=== PATIENT | female | born 1950 | race Caucasian/White ===

== ENCOUNTER 2020-03-22 10:13 | Inpatient (IN) | payer MEDICARE ==
[~2020-03-22] VITALS: Ht 160 cm; Wt 84.9 kg
[~2020-03-22 10:13] MED LIST: ASPIRIN325 M1 OR; FOSINOPRIL10 MG OR; GLIPIZIDE10 MG OR; LISINOPRIL10 MG OR; METFORMIN1000 MG OR; METOPROLOL25 M1 OR; RELION 70/30 SC
--- NOTE | 2020-03-22 10:13 | NUR ---
PT TO ROOM VIA EMS FOR BEDSIDE TRIAGE
[2020-03-22] MEDS ORDERED: LASIX 40 MG TAB40 MG PO (10:29)
[2020-03-22] MEDS ORDERED: SOD CHLORIDE1 G2 PO (10:30)
[2020-03-22] MEDS ORDERED: BUMEX1 M1 PO (10:32)
[2020-03-22] MEDS ORDERED: SPIRONOLACT25 MG PO (10:32)
[2020-03-22] MEDS ORDERED: LIPITOR20 M1 PO (10:33)
[2020-03-22] MEDS ORDERED: LEVOTHYROXIN75 MC1 PO (10:34)
[2020-03-22] MEDS ORDERED: PLAVIX75 MG PO (10:35)
[2020-03-22] MEDS ORDERED: IRON (FERROUS S50 MG PO (10:36)
[2020-03-22 10:40] LABS: HEMATOCRIT 44.7 % (37.0-47.0); HEMOGLOBIN 14.7 g/dl (12.0-16.0); IMMATURE GRANULOCYTES 0.8 % (0.0-5.0); MEAN CELL VOLUME 87.5 fL CALC (80.0-100.0); MEAN CORPUSCULAR HGB 28.8 pG CALC (26.0-32.0); MEAN CORPUSCULAR HGB CONC 32.9 g/dL CAL (32.0-36.0); NEUT# 8.07 thou/uL (2.00-7.15); RED BLOOD COUNT 5.11 mill/uL (4.20-5.60); RED CELL DISTRI WIDTH 14.6 % (11.5-15.5)
[2020-03-22 11:04] LABS: ALBUMIN 4.3 g/dL (3.2-5.0); BUN 23 mg/dL (8-23); BUN/CREATININE RATIO 27 (12-20 (CALC)); CARBON DIOXIDE 29 mmol/l (22-30); CREATININE 0.9 mg/dL (0.5-1.0); GFR > 60 ML/MIN (>=60 (CALC)); GFR FOR AFR.AMER. > 60 ML/MIN (>=60 (CALC)); MAGNESIUM 1.5 mg/dL (1.6-2.3); POTASSIUM 4.5 mmol/l (3.5-5.1); SGOT/AST 36 u/l (9-36)
[2020-03-22 11:05] LABS: ALKALINE PHOSPHATASE 181 u/l (38-126); ANION GAP 17 (6-22 (CALC)); BILIRUBIN, TOTAL 1.8 mg/dL (0.0-1.4); CHLORIDE 82 mmol/l (95-108); SODIUM 123 mmol/l (137-146); TOTAL PROTEIN 8.7 g/dL (6.3-8.2)
--- NOTE | 2020-03-22 11:11 | NUR ---
PT TO RADIOLOGY IN STABLE CONDITION AT THIS TIME
[2020-03-22 11:12] LABS: D-DIMER 7.57 mg/L (0.19-0.60); INTERNATIONAL NORMALIZED RATIO 1.3 RATIO (0.7-1.3)
--- NOTE | 2020-03-22 12:10 | NUR ---
PT RESTING ON STRETCHER; NO S/S OF DISTRESS NOTED; VENTIMASK IN PLACE; FAMILY AT BEDSIDE; VSS; ADVISED OF CONTINUED WAIT TIME; PUREWICK PLACED FOR PT COMFORT; PT VOIDED 1000ML OF CLEAR YELLOW URINE; ADVISED OF CONTINUED WAIT TIME
[2020-03-22 12:47] LABS: AMYLASE 96 u/l (30-110); LIPASE 86 u/l (23-300)
[2020-03-22 12:48] LABS: ETHYL ALCOHOL 0 mg/dl (0-30)
[2020-03-22 13:10] LABS: URINE BILIRUBIN - DIPSTICK NEGATIVE (NEGATIVE); URINE BLOOD DIPSTICK TRACE-LYSED (NEGATIVE); URINE COLOR YELLOW; URINE GLUCOSE - DIPSTICK 100 mg/dL (NEGATIVE); URINE KETONE NEGATIVE (NEGATIVE); URINE LEUK ESTERASE NEGATIVE (NEGATIVE); URINE NITRITE - DIPSTICK NEGATIVE (Negative); URINE PH 7.5 (4.5-8.0); URINE PROTEIN - DIPSTICK TRACE mg/dL (NEG-TRACE); URINE UROBILINOGEN - DIPSTICK 0.2 E.U./dL (0.2)
--- NOTE | 2020-03-22 13:10 | NUR ---
PT RESTING ON STRETCHER; IV ANTIBIOTICS INFUSING; ACCUCHECK READING 66 AT THIS TIME; PO FLUIDS GIVEN WILL CONTINUE TO MONITOR
[2020-03-22 13:14] LABS: BARBITURATES NEGATIVE (NEGATIVE); COCAINE NEGATIVE (NEGATIVE); METHADONE NEGATIVE (NEGATIVE); OXCYCODONE NEGATIVE (NEGATIVE); TETRAHYDROCANNABIONOL NEGATIVE (NEGATIVE); TRICYLIC ANTIDEPRESSANTS NEGATIVE (NEGATIVE)
--- NOTE | 2020-03-22 14:10 | NUR ---
PT RESTING ON STRETCHER; NO S/S OF DISTRESS NOTED; MONIOTRING DEVICES IN PLACE; VSS; ADVISED OF CONTINUED WAIT TIME FOR ADMISSION; ACCUCHECK RECHECK 166; WILL CONTINUE TO MONITOR
--- NOTE | 2020-03-22 15:10 | NUR ---
Admission Note Report Given to: NITO MANNING Transported by: Wheelchair X Stretcher Transported with: X Nurse Transporter X Patent IV X O2 X Art Instructor Location: ICU X MS2
--- NOTE | 2020-03-22 15:10 | NUR ---
PT ARRIVED TO UNIT VIA STRETCHER WITH ER STAFF; ALERT AND ORIENTED. ASSISTED FROM STRETCHER TO BED WITH 3 PERSON ASSIST. PT C/O PAIN TO LEFT HIP WITH MOVEMENT, BUT DECLINES PAIN AT REST. RESPIRATIONS SHALLOW AND SLIGHTLY LABORED WITH EXERTION; ON 9L OF OXYGEN VIA VENTIMASK. LEVAQUIN INFUSING UP ON ARRIVAL; IV SITE TO [facility] APPEARS HEALTHY. PURWIK IN PLACE. PT ORIENTED TO ROOM AND CALL LIGHT SYSTEM. PLAN OF CARE DISCUSSED. ENCOURAGED TO VERBALIZE CONCERNS; STATES UNDERSTANDING. SAFETY MEASURES IN PLACE. CALL LIGHT WITHIN REACH.
[2020-03-22 15:31] VITALS: BP 94/60
--- NOTE | 2020-03-22 15:37 | NUR ---
PT REMOVED FACE MASK; 4L OF OXYGEN APPLIED VIA NC; SPO2 100%. LUNGS ARE DIMINISHED; HR REGULAR; PERRLA; RAISED AREA TO RIGHT UPPER CHEST WITH BLACK CIRCULAR CENTER PROTRUDING; ABDOMEN DISTENDED AND SOFT; REDNESS TO RIGHT GROIN; EXCORIATION TO LEFT ABDOMINAL FOLD; PHOTOS TAKEN AND PLACED IN CHART. WEAK PEDAL PULSES; FEET COOL WITH PURPLE DISCOLORATION. PT SITTING UP DRINKING WATER.
[2020-03-22 20:11] VITALS: BP 135/87
--- NOTE | 2020-03-22 21:03 | NUR ---
PT. RESTING IN BED WITH EXERTIONAL SOB NOTED. O2 INFUSING PER NC @4LITERS/MIN. DENIES NEEDS/PAIN. PT. WITH PUREWIC IN PLACE AFTER TRANSCRIBING MACHINE MECHANIC ATTMEPTED TO GET PT. OOB FOR APPROXIMATELY 40 MINUTES AND WAS UNSUCCESSFUL WITH THIS. REDNESS NOTED TO LEFT ABDOMINAL FOLD AND ALOE CREAM APPLIED. PT. IS ENCOURAGED TO REPOSITION OFTEN. VOICES NO CONCERNS. CALL LIGHT IS IN REACH. WILL CONTINUE TO MONITOR.
[2020-03-23] VITALS (23 sets, daily range): BP systolic 71–125; BP diastolic 44–71
--- NOTE | 2020-03-23 00:10 | NUR ---
STARTED IV TO RFA X1 ATTEMPT AND EMS SITE REMOVED FROM LAC WITH CATHETER TIP INTACT. PT. TOLERATED WELL; DENIES NEEDS.
--- NOTE | 2020-03-23 03:30 | NUR ---
INCENTIVE SPIROMETER PROVIDED AND EDUCATION GIVEN; PT. ABLE TO PULL 500 AND GOAL SET TO 750. O2 TITRATED DOWN TO 2LITERS/MIN PER NC AND SPO2 97%. ENCOURAGED TO DEEP BREATHE. FRESH WATER PROVIDED.
[2020-03-23 05:00] LABS: HEMATOCRIT 43.9 % (37.0-47.0); HEMOGLOBIN 14.2 g/dl (12.0-16.0); IMMATURE GRANULOCYTES 0.5 % (0.0-5.0); MEAN CELL VOLUME 88.2 fL CALC (80.0-100.0); MEAN CORPUSCULAR HGB 28.5 pG CALC (26.0-32.0); MEAN CORPUSCULAR HGB CONC 32.3 g/dL CAL (32.0-36.0); NEUT# 11.9 thou/uL (2.00-7.15); RED BLOOD COUNT 4.98 mill/uL (4.20-5.60); RED CELL DISTRI WIDTH 14.9 % (11.5-15.5)
[2020-03-23 05:11] LABS: ALBUMIN 3.8 g/dL (3.2-5.0); ALKALINE PHOSPHATASE 124 u/l (38-126); ANION GAP 15 (6-22 (CALC)); BUN 25 mg/dL (8-23); BUN/CREATININE RATIO 26 (12-20 (CALC)); CARBON DIOXIDE 30 mmol/l (22-30); CHLORIDE 83 mmol/l (95-108); CREATININE 0.9 mg/dL (0.5-1.0); GFR > 60 ML/MIN (>=60 (CALC)); GFR FOR AFR.AMER. > 60 ML/MIN (>=60 (CALC)); POTASSIUM 5.1 mmol/l (3.5-5.1); SGOT/AST 27 u/l (9-36); SODIUM 123 mmol/l (137-146); TOTAL PROTEIN 7.6 g/dL (6.3-8.2)
--- NOTE | 2020-03-23 05:56 | NUR ---
PT. ASSISTED TO TURN ONTO RIGHT SIDE PER HER REQUEST. PT. IS ENCOURAGED TO MOVE. PO FLUIDS OFFERED.
--- NOTE | 2020-03-23 07:15 | NUR ---
REPORT RECEIVED FROM NITO BARRY. PT RESTING ON LEFT SIDE; POSITIONED WITH PILLOWS. ALERT AND ORIENTED. C/O 9/10 PAIN WITH MOVEMENT; DECLINES PAIN AT REST. RESPIRATIONS EVEN AND UNLABORED ON OXYGEN 2L VIA NC. TELE ON. ACCU CHECK 133. PLAN OF CARE REVIEWED. PT ENCOURAGED TO VERBALIZE CONCERNS. STATES UNDERSTANDING. SAFETY MEASURES IN PLACE. CALL LIGHT WITHIN REACH.
--- NOTE | 2020-03-23 08:03 | NUR ---
PT REPOSITIONED ONTO BACK AND PULLED UP IN BED; ENCOURAGED TO MOVE HERSELF; MINIMAL EFFORT; PT REPORTS THAT IT IS DUE TO PAIN ON MOVEMENT OF 9/10 TO LEFT HIP. AFTER REPOSITIONING PT C/O SEVERE DIZZINESS WITH DRY HEAVES. COOL CLOTH APPLIED TO HEAD AND DEEP BREATHING ENCOURAGED WITH GOOD EFFECT. PT SITTING UP EATING BREAKFAST.
--- NOTE | 2020-03-23 10:59 | NUR ---
PT RESTING WITH EYES CLOSED; RESTING ON RIGHT SIDE WITH PILLOWS TO OFFLOAD BACK. ENCOURGED TO REPOSITION SELF IN BED.
--- NOTE | 2020-03-23 12:17 | NUR ---
DR. VASQUEZ AT BEDSIDE.
--- NOTE | 2020-03-23 12:26 | NUR ---
TYLENOL GIVEN FOR DISCOMFORT WITH MOVEMENT.
--- NOTE | 2020-03-23 13:59 | NUR ---
BLOOD PRESSURE DOWN TO 86/58 HR IN THE 90'S. REPOSITIONED PT SUPINE AND F/U BP 76/57. PT DIAPHORETIC. ALERT AND ORIENTED TO NAME AND PLACE; UNABLE TO REMEMBER THE YEAR SHE HAD BEFORE. ACCU CHECK 281. SR ON TELEMETRY HEART RATE IN THE S. DR. VASQUEZ NOTIFIED OF CHANGE IN CONDITION. NEW ORDER FOR FLUID BOLUS. RT AT BEDSIDE FOR ABG.
--- NOTE | 2020-03-23 14:08 | NUR ---
FACIAL FLUSHING; DENIES PAIN; URINE IS DARKER CLEAR KELLEE. BLOOD PRESSURE IMPROVED NOW 106/[address] VASQUEZ UPDATED. NEW ORDER TO DISCONTINUE BOLUS; PT HAS RECEIVED 225ML IV TOTAL. GIVEN ONE TIME DOSE OF ALBUMIN. ABG RESULTS SHOW PO2 OF 55; RT AT BEDSIDE; OXYGEN INCREASED TO 4L VIA NC.
--- NOTE | 2020-03-23 15:07 | NUR ---
NEW IV STARTED TO LFA AND ALBUMIN INFUSING AT THIS TIME. RESPIRATORY STATUS UNCHANGED; LUNG SOUNDS ARE DIMINISHED WITH WHEEZING TO LEFT. WILL CLOSELY MONITOR BLOOD PRESSURE AND RESPIRATORY STATUS. PT AWAKE AND TALKING TO ON TELEPHONE.
--- NOTE | 2020-03-23 16:21 | NUR ---
BLOOD PRESSURE HAS REMAINS STABLE; CURRENTLY 90/60 HR 89. PT RESTING WITH EYES CLOSED AND NO SIGNS OF DISTRESS; SPO2 100% ON HUMIDIFIED O2 4L. PT REQUESTED THAT NURSE ADJUST HER POSITION IN BED; PT ENCOURAGED TO REPOSITION HERSELF INDEPENDENTLY. PT ADMITS THAT SHE DOES HAVE DIFFICULTY AMBULATING AT HOME AND HER ASSISTS HER. PT ORDERED FOR ACTIVITY LEVEL EVAL. SAFETY MEASURES IN PLACE. CALL LIGHT WITHIN REACH.
--- NOTE | 2020-03-23 18:31 | NUR ---
PT REMAINS HYPOTENSIVE. BP CURRENTLY 83/58. NEW ORDER TO TRANSFER TO ICU FOR CLOSER MONITORING; KEEP MAP GREATER THAN 60. ROOM ASSIGNMENT RECEIVED; ICU BED 5 FROM NITO SAGASTUME.
--- NOTE | 2020-03-23 19:35 | NUR ---
PT ARRIVES VIA BED ACCOMPANIED BY NURSE'S AIDE OMEGA AND NITO MANNING, ON 4 L/MIN NC. NO ACUTE DISTRESS SHOWN. PT IS ALERT AND ORIENTED X4. NURSING ASSESSMENTPERFORMED. POC FOR TONIGHT DISCUSSED, PT UNDERSTANDS AND AGREES. PT DENIES PAIN. PT SATS 96%-98% ON 4 L/MIN NC. AFEBRILE. IV X2 INTACT AND FLUSH PROPERLY, SALINE LOCKED AT THIS TIME. PUREWICK INTACT AND AT HIGH CONTINUOUS SUCTION. PT HAS TEAM ASSEMBLER COUGH. PT REMINDED SHE IS ON AIRBORNE PRECAUTIONS FOR TESTING FOR CORONAVIRUS. PT'S BP SYSTOLIC 70'S. WILL CALL FOR ORDERS.
--- NOTE | 2020-03-23 19:38 | NUR ---
REPORT GIVEN TO NITO RODRIGUEZ. PT TRANSFERRED TO ICU ROOM 6 VIA BED WITH OXYGEN IN STABLE CONDITION.
--- NOTE | 2020-03-23 20:04 | NUR ---
CALLED AND SPOKE TO DR VASQUEZ TO NOTIFY PT'S LAST BP 72/52, MAP OF 58. NEW ORDERS RECEIVED BY DR VASQUEZ.
--- NOTE | 2020-03-23 20:10 | NUR ---
PATIENT WAS LAYING WITH HOB ABOUT 15 DEGREES, NOTICED O2 SAT WAS 88%. ASKED PT IF SHE WAS ABLE TO PULL HERSELF UP, PT ATTEMPTED TO WITH VERBAL CUEING AND POSITIONING, PT IS WEAK, RN JOHNNY AND I PULLED HER UP, RAISED HOB ABOUT 45 DEGREES, PT NOW SATS 93%-95%. SOB NOTED WITH EXERTION. NO LABORED BREATHING. PT FEELS NAUSEAUS, EMESIS BAG PROVIDED, WILL PROVIDED ZOFRAN.
--- NOTE | 2020-03-23 21:11 | NUR ---
PT WAS GIVEN ZOFRAN FOR NAUSEA, WHICH SHE REPORTED IT HELPED. LEVOPHED DRIP WAS STARTED WITH NS AT [facility] FOR BACKUP FLUIDS. 1 UNIT OF NOVOLOG GIVEN FOR BS 191 MG/DL. PT SATS 96%, NO RESPIRATORY DISTRESS NOTED, BP NOW IS 126/72 MMHG, LEVOPHED DRIP IS AT 8 MCG/MIN OR 30 ML/HR. SR ON TELEMETRY, HR RANGES 70'S-80'S. NOW SHE IS TALKING ON THE PHONE WITH HER , WAS UPDATED ON CURRENT STATUS. CALL LIGHT WITHIN REACH.
--- NOTE | 2020-03-23 21:45 | NUR ---
PT ASSISTED X2 TO TURN ON HER RIGHT SIDE, PT WAS ENCOURAGED TO HELP. NO ACUTE DISTRESS SHOWN. CALL LIGHT WITHIN REACH.
--- NOTE | 2020-03-23 21:59 | NUR ---
PATIENT ABLE TO SWALLOW HER SODIUM CHLORIFE TABLET. NO ACUTE DISTRES SHOWN. NO NEEDS AT THIS TIME. CALL LIGHT WITHIN REACH.
[2020-03-24] VITALS (26 sets, daily range): BP systolic 95–12112; BP diastolic 7–76
--- NOTE | 2020-03-24 00:49 | NUR ---
LEVOPHED DRIP TITRATED, PT'S BP 130'S SYSTOLIC. NC 4L/MIN WEANED TO 3 L/MIN, PT'S 02 SAT 98%-100%. PT RESTS WITH EYES CLOSED. NO ACUTE DISTRESS NOTED. CALL LIGHT WITHIN REACH.
--- NOTE | 2020-03-24 02:00 | NUR ---
BEDRESTING. CEDEÑO TO BSD- HAS MODERATE AMOUNT OF STRAW URINE. IV OF LEFT FOREARM REMAINS HL. TLCL IN PLACE WITH INFUSIONS RX
--- NOTE | 2020-03-24 04:00 | NUR ---
SNOORING. O2 AT 4L/MIN VIA N/C REMAINS IN USE. (USES C.PAP AT HOME). SATS NOT HIGH WHILE AWAKE BUT REMAIN GREATER THAN 90% SBP LESS THAN 100 BUT MEAN WNL. PT SNOORING. SBP >100 WHEN ARROUSED. WILL CONTINUE LEVOPHED SAME RATE-NO TITRATION AT THIS TIME
--- NOTE | 2020-03-24 04:59 | NUR ---
PATIENT PULLED UP IN BED ASSIST X2, LAYS ON HER RIGHT SIDE. BECAME NAUSEAS AFTER LAYING HER SUPINE TO BE ABLE TO PULL HER UP, HOB ELEVATED RIGHT AWAY, EMESIS BAG PROVIDED. PT REPORTS NAUSEA SUBSIDING NOW. HEELS ELEVATED THROUGH THE NIGHT WITH A PILLOW.
--- NOTE | 2020-03-24 05:26 | NUR ---
BLOOD DRAWN FOR LABS ORDERED THIS AM. PT TOLERATED WELL. WILL PROVIDED ZOFRAN FOR NAUSEA.
--- NOTE | 2020-03-24 05:35 | NUR ---
PROVIDED ZOFRAN, PT SITS UP IN BED. RT IN TO DO CXR. NO ACUTE DISTRESS SHOWN, PILLOW TAKEN OFF OF BUTTOCKS PER REQUEST. 200 ML OF URINE EMPTIED FROM PUREWICK CONTAINER, PT'S PANTILINER PAD WAS ALSO SATURATED WITH URINE.
[2020-03-24 05:44] LABS: HEMATOCRIT 42.1 % (37.0-47.0); HEMOGLOBIN 13.7 g/dl (12.0-16.0); MEAN CELL VOLUME 88.8 fL CALC (80.0-100.0); MEAN CORPUSCULAR HGB 28.9 pG CALC (26.0-32.0); MEAN CORPUSCULAR HGB CONC 32.5 g/dL CAL (32.0-36.0); RED BLOOD COUNT 4.74 mill/uL (4.20-5.60); RED CELL DISTRI WIDTH 14.9 % (11.5-15.5)
[2020-03-24 05:57] LABS: CREATININE 1.4 mg/dL (0.5-1.0)
--- NOTE | 2020-03-24 06:00 | NUR ---
AM LABS OBTAINED FROM CENTRAL LINE. ARROUSES FOR PATIENT IDENTIFIERS, THEN CLOSES EYES AND BACK TO SNOORING WITHIN MINUTES.
[2020-03-24 06:04] LABS: CHOLESTEROL HDL RATIO 2.6 (<4.4 (CALC))
[2020-03-24 06:05] LABS: POTASSIUM 5.5 mmol/l (3.5-5.1)
[2020-03-24 06:28] LABS: TSH, 3RD GENERATION 3.51 uIU/mL (0.47 - 4.68)
--- NOTE | 2020-03-24 06:28 | NUR ---
PT RESTS WITH EYES CLOSED. NO ACUTE DISTRESS SHOWN, O2 SAT IS 98% ON 4L/MIN NC. BP WNL. ST ON TELEMETRY, HR 100-101 BPM. CALL LIGHT WITHIN REACH.
--- NOTE | 2020-03-24 07:00 | NUR ---
PT RESTING IN BED AWAKE AND REQUESTING TO BE TURNED. PT IS ALERT AND ORIENTED X2. PT DOES NOT KNOW MONTH OR YEAR. REORIENTATION SUCCESSFUL. PT STATES SHE IS UNABLE TO TURN SELF DUE TO FALL AND HURTING HIP A FEW DAYS AGO. SHIFT ASSESSMENT COMPLETED AT THIS TIME. IV PATENT X2. CALL LIGHT IN REACH. WILL CONTINUE TO MONITOR.
--- NOTE | 2020-03-24 08:10 | NUR ---
CEDEÑO PLACED USING STERILE TECHNIQUE. IMMEADIATE RETURN OF URINE. WITH SEDIMENT AND DARK COLORED URINE. PT TOLERATED WELL. SPECIMEN TO LAB.
--- NOTE | 2020-03-24 08:30 | NUR ---
PT SET UP FOR AM MEAL
--- NOTE | 2020-03-24 09:00 | NUR ---
PT STARTER CUP POWDER MIXER LIGHT REQUESTING TO BE TURNED. PT ENCOURAGED TO TURN SELF. PT STATES THAT SHE CANNOT TURN SELF. PT ASSISTED IN TURN.
--- NOTE | 2020-03-24 09:20 | NUR ---
DR ZAMAN AT BEDSIDE AT THIS TIME. CONSULTED DR PEARCE. DR ZAMAN NOTIFIED DR PEARCE OF CONSULT
--- NOTE | 2020-03-24 09:45 | NUR ---
PT MEDICATED WITH AM MEDS. PT REQUESTED TO TURN. PT ENCOURAGED TO TURN SELF. PT STATES SHE CAN'T PT ASSISTED TO TUEN ON SIDE.
[2020-03-24 10:13] LABS: URINE BILIRUBIN - DIPSTICK NEGATIVE (NEGATIVE); URINE BLOOD DIPSTICK TRACE-INTACT (NEGATIVE); URINE CLARITY SL CLOUDY; URINE COLOR YELLOW; URINE GLUCOSE - DIPSTICK 100 mg/dL (NEGATIVE); URINE KETONE NEGATIVE (NEGATIVE); URINE LEUK ESTERASE NEGATIVE (Negative); URINE NITRITE - DIPSTICK NEGATIVE (Negative); URINE PROTEIN - DIPSTICK 100 mg/dL (NEG-TRACE); URINE SPECIFIC GRAVITY >=1.030
--- NOTE | 2020-03-24 10:15 | NUR ---
PT O2 SATS 82% WHILE SLEEPING. PT WAKES UP STILL O2 SATS 90% OR LESS. DR ZAMAN NOTIFIED OF O2 WHILE ON 4LNC. ORDERS RECEIVED FOR REPEAT CXR. ORDER PLACED IN COMPUTER.
[2020-03-24 10:18] LABS: URINE EPITHELIAL CELLS FEW EPI/hpf (0-FEW); URINE MUCUS FEW hpf (NONE-FEW); URINE RBC 0-2 RBC/hpf (0-5)
--- NOTE | 2020-03-24 10:30 | NUR ---
PHYSICAL THERAPY AT BEDSIDE AT THIS TIME
[2020-03-24 10:32] LABS: C-REACTIVE PROTEIN 14.2 mg/dL (0-0.9)
--- NOTE | 2020-03-24 10:51 | NUR ---
RADIOLOGY AT BEDSIDE FOR REPEAT CHEST XRAY
--- NOTE | 2020-03-24 10:52 | NUR ---
PT RESTING IN BED WITH EYES CLOSED. NO DISTRESS NOTED. WILL CONTINUE TO MONITOR.
--- NOTE | 2020-03-24 11:15 | NUR ---
PT MOVED TO ICU BED 1 FOR A NEGATIVE PRESSURE ROOM.
--- NOTE | 2020-03-24 11:15 | NUR ---
PT MOVED FROM ICU 3 TO ICU 1 VIA BED FOR AIR PRECAUSTIONS.
--- NOTE | 2020-03-24 11:52 | NUR ---
PT SET UP FOR NOON MEAL
--- NOTE | 2020-03-24 13:00 | NUR ---
PT SITTING UP IN BED. CORDLESS PHONE PROVIDED TO BEATRIZ WITH FAMILY MEMBER. MEDICATED PER JAN. CALL LIGHT IN REACH. WILL CONTINUE TO MONITOR.
--- NOTE | 2020-03-24 14:10 | NUR ---
PT RESTING IN BED WITH EYES CLOSED. RESP ARE EVEN AND UNLABORED. NO DISTRESS NOTED. CALL LIGHT IN REACH. WILL CONTINUE TO MONITOR.
--- NOTE | 2020-03-24 14:20 | NUR ---
DR OWENS AT BEDSIDE FOR CENTRAL PLACEMENT TO RIJ
--- NOTE | 2020-03-24 14:50 | NUR ---
RADIOLOGY AT BEDSIDE FOR CXR TO VERIFY PLACEMENT OF CENTRAL LINE
--- NOTE | 2020-03-24 16:01 | NUR ---
PT RESTING IN BED AWAKE AT THIS TIME. RESP ARE EVEN AND UNLABORED. VSS ON MONITOR. CALL LIGHT IN REACH. WILL CONTINUE TO MONITOR.
--- NOTE | 2020-03-24 16:45 | NUR ---
PT DIRECTOR OF ATHLETICS LIGHT STATES THAT SHE NEEDS TO USE THE RESTROOM. THIS NURSE AND SECOND NURSE INTO ROOM TO PLACE PATIENT ON BED ESPARZA DUE TO PATIENT REFUSING EARLIER IN SHIFT TO TURN SELF. PT STATES NO SHES IS NOT USING BED ESPARZA. EXPLAINED THAT WITH PHYSICAL THERAPY EARLIER SHE REFUSED TO GET UP. PT REPLIES WITH "DID I?" EXPLAINED THAT WE ARE NOT ABLE TO PHYSICALLY JUST PICK HER UP SHE WILL HAVE TO ASSIST. PT REFUSES TO USE BED ESPARZA. PT REFUSES TO ASSIST IN MOVING SELF TO SIDE OF BED. ONCE AT SIDE OF BED ASSISTED PT TO STAND PT STATES SIT ME BACK DOWN. EXPLAINED THAT SHE WILL NEED TO USE THE BED ESPARZA. PT STATES "WELL THAT WAS HARD" PT PLACED ON BED. PT DID NOT HAVE BOWEL MOVEMENT. THEN PT STATES "OH DID I HAVE TO GO TO THE BATHROOM?" "AM I ON A BED ESPARZA?". PT CLEANSED FROM SMALL LIQUID BM IN BED. LINENS CHANGED. PT REMAINS ALERT TO SELF AND PLACE. ASKED PATIENT ABOUT POSSIBILITY OF REHAB PT STATES MY TAKES CARE OF ME AT HOME. CALL LIGHT IN REACH. WILL CONITNUE TO MONITOR.
--- NOTE | 2020-03-24 17:30 | NUR ---
PT SET UP FOR PM MEAL AT THIS TIME.
--- NOTE | 2020-03-24 17:50 | NUR ---
PT CIRCUIT COURT CLERK LIGHT STATES "WHERE ARE MY TEETH AT?" THIS PHOTO MASK CLEANER INTO ROOM. ASSISTED PATIENT WITH DENTURES. PT STATES "WELL IT'S NOT LIKE THEY ARE GOING TO STICK" EXPLAINED THAT WE DO NOT HAVE FIXODENT HERE. REMINDED PATIENT SHE HAS HER CELLPHONE AND COULD DROP OFF NEEDED ITEMS. PT STATES "OH YEAH" CALL LIGHT IN REACH. WILL CONTINUE TO MONITOR.
--- NOTE | 2020-03-24 19:00 | NUR ---
RECEIVED REPORT FROM Francesca ISSA. PT BEDRESTING. LEVOPHED AND NS INFUSING VIA TLCL. HL IN PLACE ON LEFT FOREARM. NO DISTRESS NOTED
--- NOTE | 2020-03-24 19:30 | NUR ---
CALLED FOR NURSE TO TURN AND REPOSITION HER. WANTS TO BE TURNED TO SIDE. WITH ENCOURAGEMENT PT REACHED FOR SIDE RAIL TO ASSIST IN TURNING. DNEIS PAIN BUT STATES BACK IS ACHING
--- NOTE | 2020-03-24 20:00 | NUR ---
LAB CALLED. COVID SWAB RESULTS NEGATIVE. Darian NIEVES SUPERVIAOR NOTIFIED.
--- NOTE | 2020-03-24 20:30 | NUR ---
USES INCENTIVE SPIROMETER WITH ENCOURAGEMENT. GETS UP TO 500. BARELY PLACES LIPS ON MOUTHPIECE. EDUCATION PROVIDED AND ECOURAGED TO USE "TO PREVENT PNEUMONIA/COMPLICATIONS"
--- NOTE | 2020-03-24 20:55 | NUR ---
CALLED TO BE TURNED AND PULLED UP IN BED. ENCOURAGED PT TO DO MUCH POSSIBLE TO HELP SELF. C/O LEFT HIP SORE. NO DISCOLORATION OR BREAK OF SKIN OF BUTTOCKS. O2 SAT DECREASES WITH TALKING
--- NOTE | 2020-03-24 22:35 | NUR ---
CALLED FOR REPOSITIONING. TURNED ONTO LEFT SIDE WITH ASSIST. LEVOPHED AND FLUIDS CONTINUE AT SAME RATE
[2020-03-25] VITALS (43 sets, daily range): BP systolic 83–118; BP diastolic 47–79
--- NOTE | 2020-03-25 | NUR ---
BEDRESTING. EYES CLOSED. SNOORING AT TIMES. SBP 90'S BUT MEAN WNL. WILL ONSERVE
--- NOTE | 2020-03-25 02:00 | NUR ---
STRAW COLORED URINE TO BSD BAG WITH MODERATE AMOUNT. IV OF LEFT FOREARM REMAINS HL. MEDS INFUSING VIA TLCL
--- NOTE | 2020-03-25 04:00 | NUR ---
SNOORING. O2 AT 4L/MIN VIA N/C. 9USES C.PAP AT HOME). SAT REMAINS IN 90'S WHILE SNOORING AND RISES WHEN AWAKE. SBP <100 BUT MEAN IS WNL.
[2020-03-25 05:36] LABS: HEMATOCRIT 39.7 % (37.0-47.0); HEMOGLOBIN 12.8 g/dl (12.0-16.0); IMMATURE GRANULOCYTES 0.4 % (0.0-5.0); MEAN CELL VOLUME 91.3 fL CALC (80.0-100.0); MEAN CORPUSCULAR HGB 29.4 pG CALC (26.0-32.0); MEAN CORPUSCULAR HGB CONC 32.2 g/dL CAL (32.0-36.0); NEUT# 7.96 thou/uL (2.00-7.15); RED BLOOD COUNT 4.35 mill/uL (4.20-5.60); RED CELL DISTRI WIDTH 14.8 % (11.5-15.5)
[2020-03-25 05:52] LABS: ALBUMIN 3.2 g/dL (3.2-5.0); BILIRUBIN, TOTAL 2.2 mg/dL (0.0-1.4); CREATININE 1.2 mg/dL (0.5-1.0); POTASSIUM 4.9 mmol/l (3.5-5.1); TOTAL PROTEIN 6.6 g/dL (6.3-8.2)
--- NOTE | 2020-03-25 06:00 | NUR ---
AM LABS DRAWN VIA TLCL. PT ARROUSES FOR PATIENT IDENTIFIERS BUT READILY CLOSES EYES AND IS SNOORING MINUTES AFTER
[2020-03-25 06:06] LABS: C-REACTIVE PROTEIN 12.5 mg/dL (0-0.9)
--- NOTE | 2020-03-25 06:45 | NUR ---
REPORT GIVEN TO SAMANTHA. BEDRESTING. RESP EVEN AND NONLABORED. ON STANDARD PRECAUTIONS ( COVID TESTS X 3 NEGATIVE). CEDEÑO TO BSD. O2 AT 4L PER N/C. IV FLUIDS/MEDICATION VIA TLCL.
--- NOTE | 2020-03-25 06:45 | NUR ---
RECEIVED REPORT FROM Eyad MCGOWAN RN. CARE ASSUMED.
--- NOTE | 2020-03-25 07:00 | NUR ---
PT RESTING IN BED WITH EYES CLOSED. RESP ARE EVEN AND UNLABORED.NO DISTRESS NOTED. SHIFT ASSESSMENT COMPLETED AT THIS TIME. IV PATENT X2. VSS ON MONITOR. CALL LIT IN REACH. WILL CONTINUE TO MONITOR.
--- NOTE | 2020-03-25 08:45 | NUR ---
PT SET UP FOR AM MEAL AT THIS TIME
--- NOTE | 2020-03-25 09:00 | NUR ---
DR ZAMAN AT BEDSIDE AT THIS TIME.
--- NOTE | 2020-03-25 10:00 | NUR ---
PT SITTING UP IN BED WATCHING TV. RESP ARE EVEN AND UNLABORED. VSS ON MONITOR. CALL LIGHT IN REACH. WILL CONTINUE TO MONITOR.
--- NOTE | 2020-03-25 11:00 | NUR ---
PHYSICAL THERAPY AT BEDSIDE. PHYSICAL THERAPY ASSISTED PATIENT UP TO CHAIR AT THIS TIME.
--- NOTE | 2020-03-25 11:43 | NUR ---
PT SITTING UP IN CHAIR AND SET PT UP FOR NOON MEAL.
--- NOTE | 2020-03-25 12:42 | NUR ---
PT STATES THAT SHE HAS TO HAVE A BOWEL MOVEMENT. PT MAKES NO EFFORT TO ASSIST IN GETTING OUT OF CHAIR. PHONED PHYSICAL THERAPY TO ASSIST IN GETTING PATIENT OUT OF CHAIR.
--- NOTE | 2020-03-25 13:00 | NUR ---
PHYSICAL THERAPY AT BEDSIDE TO ASSIST PATIENT TO BSC
--- NOTE | 2020-03-25 13:00 | NUR ---
PT note Patient is seen for transfer training. In AM she was able to get OOB and perform SPT with repeated sit to stand and mod assist of 1. She refused to take a step stating she has pain with weight bearing on the left LE making moving the right LE very difficult. She is improved from eval and has an Am Pac of 10 as she is improving with bed mobility.
--- NOTE | 2020-03-25 13:25 | NUR ---
PT ASSISTED BACK TO BED BY PT AND NURSING STAFF. PT HAS NO BOWEL MOVEMENT.
--- NOTE | 2020-03-25 14:47 | NUR ---
PT FILTERING MACHINE TENDER LIGHT REQUESTING ASSISTANCE TO TURN. PT ENCOURAGED TO TURN SELF. PT REFUSED. TURNED PT IN BED AT THIS TIME. CALL LIGHT IN REACH. WILL CONTINUE TO TR.
--- NOTE | 2020-03-25 16:01 | NUR ---
PT RESTING IN BED WATCHING TV. RESP ARE EVEN AND UNLABORED. VSS ON MONITOR. CALL LIGHT IN REACH. WILL CONTINUE TO MONITOR.
--- NOTE | 2020-03-25 16:35 | NUR ---
PT SPINNERET PERSON LIGHT MULTIPLE TIMES REQUESTING ICE WATER. EXPLAINED THAT SODIUM IS LOW. EXPLAINED THAT SHE HAD HAD A LOT OF PO FLUIDS TODAY. EXPLAINED THAT WE ARE TRYING TO DIURESIS HER WELL. PT STATES " I KNOW BUT I NEED IT"
--- NOTE | 2020-03-25 17:00 | NUR ---
PT O2 SATS 80 % ON 4LNC PT LIPS ARE BLUE. PT REPOSITIONED IN BED. ORDERS FOR ABG. RT NOTIFIED.
--- NOTE | 2020-03-25 17:27 | NUR ---
RT AT BEDSIDE FOR ABG. O2 SATS UP TO 97%. PT IS DISORIENTED. PT RAMBLES. REORIENTATION UNSUCCESSFUL.
--- NOTE | 2020-03-25 17:45 | NUR ---
PT O2 SATS ARE 94%. DR ZAMAN NOTIFIED OF ABG RESULTS. PT SET UP FOR PM MEAL. CALL LIGHT IN REACH. WILL CONTINUE TO MONITOR.
--- NOTE | 2020-03-25 18:44 | NUR ---
received report. pt in bed-talking on phone. O2 remains in use and NS infusing via TLCL. No comp[laints at this time
--- NOTE | 2020-03-25 20:15 | NUR ---
PT WANTED TO GET OUT OF BED TO CHAIR. ASSISTED PT TO MOVE LEGS TO SIDE OF BED. SHE SAT ON SIADE OF BED. WITH STANDBY ASSIST SHE ATTEMPTED TO STAND X 2 BUT SAID IT HURTS HER LEFT HIP TO STAND AND SAT WITHIN SECONDS. AFTER SITTING ON SIDE OF BED AND ATTEMPTING TO STAND X 20 MINUTES, SHE OPTED TO RETURN TO BED. SHE WAS ASSISTED WITH HER LEGS TO RETURN TO BED. AFTER, SHE PULLED HERSELF UP TO HOB WITH ENCOURAGEMENT. PT TOLERATED ACTIVIRY WELL
--- NOTE | 2020-03-25 21:15 | NUR ---
ACCUCHECK READING CRITICAL HI, SO BLOOD DRAWN AND TO LAB
--- NOTE | 2020-03-25 21:49 | NUR ---
LAB GLUCOSE 398 SO 5 UNITS OF REGULAR INSULIN GIVEN RX. TOLERATED WELL
--- NOTE | 2020-03-25 22:02 | NUR ---
LOVENOX WAS GIVEN IN RIGHT ABDOMEN AND INSULIN IN LEFT. INSTRUCTION NOT TO MASSAGE BRUISED AREAS (IF FROM LOVENOX) IT MAY CAUSE THEM TO BECOME LARGER
--- NOTE | 2020-03-25 23:08 | NUR ---
BELKIS TX BY RT. DURING WHICH TIME, RT SET UP PATIENT'S C.PAP MACHIME AND IT IS READY FOR HER TO USE. SHE DID NOT WANT TO START SHE IS WATCHING TV AT THIS TIME. MACHINE AT BEDSIDE WAITING FOR TIME TO SLEEP
--- NOTE | 2020-03-25 23:16 | NUR ---
PERIODIC DRY. NON-PRODUCTIVE COUGH
[2020-03-26] VITALS (14 sets, daily range): BP systolic 90–152; BP diastolic 63–95
--- NOTE | 2020-03-26 01:00 | NUR ---
BEDRESTING SNOORING. ON RIGHT SIDE. C.PAP NOT IN USE BUT REMAINS AT BEDSIDE
--- NOTE | 2020-03-26 01:55 | NUR ---
IV ANTIBIOTIC GIVEN. PT WOKE FOR A MINUTE AND BACK TO SLEEP
--- NOTE | 2020-03-26 02:42 | NUR ---
PERIODIC COUGH. NONPRODUCTIVE. RESTING ON SIDE. N/C AT THIS TIME
--- NOTE | 2020-03-26 04:04 | NUR ---
BEDRESTING. NO COUGH OR DISTRESS NOTED
--- NOTE | 2020-03-26 07:12 | NUR ---
REPORT TO IVON BEAUCHAMP. PT BEDRESTING. NO DISTRESS NOTED
--- NOTE | 2020-03-26 07:23 | NUR ---
OBTAINED BLOOD DRAW FROM VICENTA, FLUSH WITHOUT DIFFICULTY. PT TOLERATED WELL. TAKEN TO LAB
--- NOTE | 2020-03-26 07:30 | NUR ---
PT RESTING IN BED, ALERT TO SELF AND PLACE. ST 0N TELEMETRY, HR 100. PT DENIES CP, SOB OR DISTRESS AT THIS TIME.RESP EVEN/UNLABORED, LS WHEEZES/DIMINISHED. SA02@98% ON 4LPM/NC. RIJ/TL INFUSING NS@100ML/HR, NO S/S OF INFILTRATION NOTED, FLUSHED WITHOUT DIFFICULTY. ABDOMEN SOFT/DISTENDED, NON-TENDER, BSX4 ACTIVE. CEDEÑO CATHETER PATENT, DRAINING TO BSD VIA GRAVITY. CLEAR YELLOW URINE NOTED. CALL LIGHT IN REACH. WILL MONITOR.
[2020-03-26 08:08] LABS: ALBUMIN 3.3 g/dL (3.2-5.0); BILIRUBIN, TOTAL 1.4 mg/dL (0.0-1.4); CREATININE 1.1 mg/dL (0.5-1.0); POTASSIUM 5.3 mmol/l (3.5-5.1); TOTAL PROTEIN 6.6 g/dL (6.3-8.2)
--- NOTE | 2020-03-26 09:00 | NUR ---
DR. ZAMAN AT [facility] FOR ASSESSMENT AND TO DISCUSS PLAN OF CARE. NEW ORDERS RECIEVED.
--- NOTE | 2020-03-26 09:15 | NUR ---
RT AT BEDSIDE FOR TX.
--- NOTE | 2020-03-26 10:00 | NUR ---
PT REPOSITIONED FOR COMFORT.
--- NOTE | 2020-03-26 11:31 | NUR ---
ACCU CHECK CRITICAL HIGH, THOMAS BLOOD FROM FROM [facility], SENT TO LAB FOR STAT GLUCOSE.
--- NOTE | 2020-03-26 12:05 | NUR ---
LAB CALLED TO REPORT CRITICAL VALUE OF GLUCOSE, BS 451. NOTIFIED DR. ZAMAN.
--- NOTE | 2020-03-26 12:10 | NUR ---
NEW ORDER RECIEVED FROM DR. DOWNEY, GIVE 12 UNITS NOVOLOG.
--- NOTE | 2020-03-26 12:24 | NUR ---
DR. CELESTE AT BEDSIDE FOR ASSESSMENT AND TO DISCUSS PLAN OF CARE.
--- NOTE | 2020-03-26 13:04 | NUR ---
NEB TX NOT GIVEN. PT ASLEEP AND IN NO DISTRESS.
--- NOTE | 2020-03-26 13:51 | NUR ---
PT AT BEDSIDE FOR THERAPY.
--- NOTE | 2020-03-26 14:30 | NUR ---
PT SITTING IN BED, TALKING ON PERSONAL CELL PHONE TO . NO DISTRESS NOTED AT THIS TIME. CALL LIGHT IN REACH. WILL MONITOR.
--- NOTE | 2020-03-26 15:36 | NUR ---
PT note Patient is seen for standing activity. her sit to stand is improved to min mod assist of 1 but she has continued difficulty and fear of falling with attempts to walk. She is only able to take 2-3 steps with max assist of 1. She demonstrates fear and anxiety with weightbearing on the left LE. Am Pac has imporved to 10 and she would benefit from ECF upon DC. If she insists on going home instead of SNF, she would greatly benefit from home health PT, nursing and OT.She was seen today for therapeutic activity including bed mobility and standing activity
--- NOTE | 2020-03-26 15:57 | NUR ---
PT SITTING UP IN BED, TALKING ON PERSONAL CELL PHONE. RESPIRATIONS EVEN/UNLABORED. CALL LIGHT IN REACH. WILL MONITOR.
--- NOTE | 2020-03-26 17:32 | NUR ---
PT FAMILY DROPPED OF SOME PERSONAL BELONGINGS, GIVEN TO PT.
--- NOTE | 2020-03-26 19:00 | NUR ---
REPORT GIVEN TO NITO TURNER. PT RESTING IN BED, NO DISTRESS NOTED AT THIS TIME.
--- NOTE | 2020-03-26 19:30 | NUR ---
REPORT RECEIVED FROM Heather LUTZ, CARE OF PT ASSUMED @ THIS TIME.
--- NOTE | 2020-03-26 20:15 | NUR ---
PHYSICAL ASSESMENT COMPLETE. VS ASSESSED, TELEMETRY READING ASSESSED. PT HEMODYNAMICALLY STABLE. PLAN OF CARE REVIEWED W/ PT. PT VERBALIZES UNDERSTANDING AND DENIES QUESTIONS @ THIS TIME. BAG BROUGHT IN BY PT'S S/O PROVIDED TO PT. BAG CONTAINS ORAL HYGIENE AND DENTURE SUPPLIES AND 2 CANS OF DIET SODA. ICE PROVIDED FOR SODA PER PT'S REQUEST. FINGER STICK GLUCOSE 324mg/DL. 900ML CLEAR YELLOW URINE EMPTIED FROM CEDEÑO. PT DENIES FURTHER NEEDS @ THIS TIME. CALL QUISPE WITHIN REACH, AGREES TO CALL PRN. ITEMS WITHIN REACH. BED LOCKED IN LOW POSITION W/ BEDRAILS UP X2. WILL CON'T TO MONITOR.
--- NOTE | 2020-03-26 21:00 | NUR ---
PT C/O NAUSEA AND THINKS SHE MAY VOMIT. HOB ELEVATED 90 DEGREES. EMESIS BAG PROVIDED. PT MEDICATED W/ FAROOQ, SEE MAR.
--- NOTE | 2020-03-26 21:30 | NUR ---
PHYSICAL ASSESMENT COMPLETE. VS TAKEN BY WEB SITE DEVELOPER @ 1940 ASSESSED, TELEMETRY READING FOR 1999 FROM Pa ROJO LPN/MANAGER WASTEWATER ASSESSED. PT HEMODYNAMICALLY STABLE. PLAN OF CARE REVIEWED W/ PT. PT VERBALIZES UNDERSTANDING AND DENIES QUESTIONS @ THIS TIME. FRESH ICE WATER PROVIDED TO PT. PER PT'S REQUEST. PT DENIES FURTHER NEEDS @ THIS TIME. CALL QUISPE WITHIN REACH, AGREES TO CALL PRN. ITEMS WITHIN REACH. BED LOCKED IN LOW POSITION W/ BEDRAILS UP X2. WILL CON'T TO MONITOR.
--- NOTE | 2020-03-26 21:30 | NUR ---
F/U: PT REPORTS NAUSEA HAS RESOLVED, NO EMESIS. PT AGREES TO LEAVE HOB ELEVATED @ THIS TIME. PT REPORTS SHE DOES NOT WANT TO WEAR HER HOME CPAP TONIGHT. STATES SHE WILL SOMETIMES SLEEP W/ O2 ONLY.
--- NOTE | 2020-03-26 23:06 | NUR ---
ASSISTED PT IN REPOSITIONING FOR COMFORT.
[2020-03-27] VITALS (10 sets, daily range): BP systolic 87–110; BP diastolic 53–71
--- NOTE | 2020-03-27 01:00 | NUR ---
PT APPEARS TO BE SLEEPING COMFORTABLY, NO APPARENT DISTRESS, RESPIRATIONS REGULAR AND UNLABORED. CALL QUISPE REMAINS WITHIN REACH. BED REMAINS LOCKED IN LOW POSITION W/ BEDRAILS UP X2. ITEMS WITHIN REACH. WILL CONT' TO MONITOR.
--- NOTE | 2020-03-27 05:05 | NUR ---
AM LABS DRAWN FROM [facility] W/O INCIDENT. AM SYNTHROID GIVEN, SEE MAR.
[2020-03-27 06:04] LABS: ALBUMIN 3.3 g/dL (3.2-5.0); CREATININE 1.1 mg/dL (0.5-1.0)
[2020-03-27 06:23] LABS: POTASSIUM 5.5 mmol/l (3.5-5.1)
--- NOTE | 2020-03-27 06:25 | NUR ---
NO CHANGES IN PHYSICAL ASSESSMENT. PT REMAINS HEMODYNAMICALLY STABLE. AM LAB RESULTS ASSESSED. PT RESTING IN BED COMFORTABLY, DENIES NEEDS @ THIS TIME. CALL QUISPE REMAINS WITHIN REACH. PT AGREES TO CALL PRN. ITEMS REMAIN WITHIN REACH. BED REMAINS LOCKED IN LOW POSITION W/ BEDRAILS UP X2.
--- NOTE | 2020-03-27 06:45 | NUR ---
RECIEVED REPORT FROM NITO SALEEM. ASSUMED PT CARE .
--- NOTE | 2020-03-27 07:30 | NUR ---
PT A&OX3, ABLE TO MAKE NEEDS KNOWN. RESPIRATIONS EVEN/UNLABORED, SA02@96% . ABDOMEN SOFT DISTENDED, NON-TENDER, BSX4 ACTIVE. TL/RIJ/SL NO S/S OF INFECTION OR INFILTRATION. FLUSHED WITHOUT DIFFICULTY. CEDEÑO REMAINS PATENT, DRAINING TO BSD VIA GRAVITY. CALL LIGHT IN REACH. WILL MONITOR.
--- NOTE | 2020-03-27 08:00 | NUR ---
DIETARY ON UNIT, PATIENT REPOSITIONED SELF. BREAKFAST TRAY SET UP.
--- NOTE | 2020-03-27 08:30 | NUR ---
DR. ZAMAN AT BEDSIDE FOR ASSESSMENT AND TO DISCUSS PLAN OF CARE. NEW ORDERS RECIEVED.
--- NOTE | 2020-03-27 09:32 | NUR ---
REPORT CALLED TO NITO HOOPER. PT TO TRANSFER TO MS 279.
--- NOTE | 2020-03-27 10:35 | NUR ---
PT TRANSFERRED FROM ICU BED 1 TO SANDIE ANN AT BEDSIDE. PT TRANSPORTED VIA .
--- NOTE | 2020-03-27 11:00 | NUR ---
PT ARRIVES TO ROOM 279 VIA WHEELCHAIR FROM ICU. PT IS AWAKE, ALERT, ORIENTED X 3. PT SPENT MUCH TIME TELLING ASSISTANTS TO WAIT UNTIL SHE IS READY, FINALLY NEEDED TO BE TRANSFERRED READY OR NOT. CEDEÑO CATHETER HAS BEEN REMOVED WITHOUT INCIDENT, PT AWARE OF NEED TO CALL FOR BSC WHEN SHE NEEDS TO VOID.
--- NOTE | 2020-03-27 13:53 | NUR ---
PT WITH PHYSICAL THERAPY IN ROOM, DOES NOT SEEM MOTIVATED TO CONTRIBUTE TO HER OWN CARE.
--- NOTE | 2020-03-27 15:58 | NUR ---
PT note Patient was able to work on sit to museum informatics specialist the late morning and even took 2-3 steps to bedside chair with mod assist of 1. When attempting to transfer BTB she stated she could not and a lift was required for BTB. She as able to ambulate at the household level not too long ago. She would greatly benefit from short term rehab in a [facility] facility to work on strengthening and transfer training as well as gait training to return to baseline funcitonal level. Am pac is unchanged
--- NOTE | 2020-03-27 18:14 | NUR ---
GABRIELLA PROVIDED FOR PT PER DIFFICULTY GETTING HER OOB. PT STATES THAT SHE DOES NOT NEED HER OXYGEN WHILE HERE, TRIAL RUN SAW HER DIP LOW 80s, NOW ON 4 LPM NC.
--- NOTE | 2020-03-27 20:55 | NUR ---
SAMIR W/ DR. NOGUERA RE: NIBP 87/62mmHg, PT ASYMPTOMATIC. ORDER IS TO HOLD 2100 LASIX DOSE. WILL CON'T TO MONITOR.
--- NOTE | 2020-03-27 21:00 | NUR ---
BED BATH GIVEN, GOWN AND LINENS CHANGED, PT POSITIONED IN BED FOR COMFORT. ASSISTED BY Matthew TORRES CNA.
--- NOTE | 2020-03-28 00:57 | NUR ---
PT APPEARS TO BE SLEEPING COMFORTABLY, NO APPARENT DISTRESS, RESPIRATIONS REGULAR AND UNLABORED. VS TAKEN BY URINALYSIS TECHNICIAN @ 2350 ASSESSED. NIBP 107/71mmHg. 000 TELEMETRY READING RECEIVED FROM Pa ROJO LPN/CHILD LIFE SPECIALIST IN ED ASSESSED. CALL QUISPE REMAINS WITHIN REACH. BED REMAINS LOCKED IN LOW POSITION W/ BEDRAILS UP X2. ITEMS WITHIN REACH. WILL CONT' TO MONITOR.
[2020-03-28 04:31] VITALS: BP 126/81
[2020-03-28 06:26] LABS: ALBUMIN 3.3 g/dL (3.2-5.0); CREATININE 1.3 mg/dL (0.5-1.0)
[2020-03-28 06:39] LABS: POTASSIUM 5.7 mmol/l (3.5-5.1)
[2020-03-28 07:31] VITALS: BP 119/79
--- NOTE | 2020-03-28 09:00 | NUR ---
PT IS AWAKE, ALERT, ORIENTED X 3. PT REPOSITONED IN BED FOR BREAKFAST. LUNGS CLEAR, 4 LPM NC. NO DISTRESS.
[2020-03-28 10:50] VITALS: BP 133/81
--- NOTE | 2020-03-28 13:11 | NUR ---
PT WITH PHYSICAL THERAPY IN ROOM NOW. PT HAS BEEN USING PUREWICK APPROPRIATELY. NO COMPLAINT OF CHEST PAIN OR SHORTNESS OF BREATH.
[2020-03-28 15:14] VITALS: BP 91/62
[2020-03-28 19:56] VITALS: BP 120/77
--- NOTE | 2020-03-28 21:25 | NUR ---
PHYSICAL ASSESMENT COMPLETE. VS TAKEN BY CHEMICAL SUPERVISOR @ 1955 ASSESSED, TELEMETRY READING FOR 1999 FROM Pa ROJO LPN/EYEGLASS LENS CUTTER ASSESSED. PT HEMODYNAMICALLY STABLE. PLAN OF CARE REVIEWED W/ PT. PT VERBALIZES UNDERSTANDING AND DENIES QUESTIONS @ THIS TIME. ASSISTED PT TO POSITION ON TO LEFT SIDE FOR COMFORT. PT DENIES FURTHER NEEDS @ THIS TIME. CALL QUISPE WITHIN REACH, AGREES TO CALL PRN. ITEMS WITHIN REACH. BED LOCKED IN LOW POSITION W/ BEDRAILS UP X2. WILL CON'T TO MONITOR.
[2020-03-28 23:20] VITALS: BP 109/69
--- NOTE | 2020-03-29 00:42 | NUR ---
PT APPEARS TO BE SLEEPING COMFORTABLY, NO APPARENT DISTRESS, RESPIRATIONS REGULAR AND UNLABORED. VS TAKEN BY BINDER CHAINSTITCH @ 2320 ASSESSED. 0000 TELEMETRY READING RECEIVED FROM Pa ROJO LPN/FOREIGN SERVICE TEACHER IN ED ASSESSED. CALL QUISPE REMAINS WITHIN REACH. BED REMAINS LOCKED IN LOW POSITION W/ BEDRAILS UP X2. ITEMS WITHIN REACH. WILL CONT' TO MONITOR.
[2020-03-29 04:23] VITALS: BP 113/68
--- NOTE | 2020-03-29 05:00 | NUR ---
PHYSICAL ASSESMENT REMAINS UNCHANGED FROM START OF SHIFT. VS TAKEN BY PUBLIC HEALTH TECHNICIAN @ 1696 ASSESSED. TELEMETRY READING REPORTED BY Pa ROJO LPN/ ED BLANKET CUTTING MACHINE OPERATOR ASSESSED. PT REMAINS HEMODYNAMICALLY STABLE. RESTING IN BED COMFORTABLY @ THIS TIME. DENIES NEEDS @ THIS TIME. ITEMS WITHIN REACH. BED REMAINS LOCKED IN LOW POSITION W/ BED RAILS UPX2. CALL QUISPE REMAINS WITHIN REACH. PT AGREES TO CALL PRN.
[2020-03-29 06:41] LABS: CREATININE 1.2 mg/dL (0.5-1.0)
[2020-03-29 06:44] LABS: POTASSIUM 5.4 mmol/l (3.5-5.1)
[2020-03-29 07:45] VITALS: BP 104/61
--- NOTE | 2020-03-29 07:45 | NUR ---
ASSESSMENT IS COMPLETED: IV SITE IS FREE FROM REDNESS OR EDEMA. HR IS REG,PULSES ARE STRONG X4, ABD IS SOFT WITH ACTIVE BS. BREATH SOUNDS ARE CLEAR, BILATERALLY. PUREWICK IN PLACE. CONTINUE TO OBSERVE AND MONITOR.
--- NOTE | 2020-03-29 08:38 | NUR ---
PT note 03/28/20 Patient is seen for bed to chair and therex for the LEs She required Mod assist for supine to sit but max assist SPT. She perfromed BLEs leg press to floor with 10 sec holds. Her am pac is unchanged and she would do well in SNF for short term rehab to regain baseline and return home
[2020-03-29 10:30] VITALS: BP 108/59
--- NOTE | 2020-03-29 12:15 | NUR ---
PT IS RELAXING IN BED WITH NO DISTRESS NOTED. IV SITE IS FREE FROM REDNESS OR EDEMA.
--- NOTE | 2020-03-29 14:30 | NUR ---
PT WAS FULLY SOILED, BATH WAS GIVEN, AND SMALL BACK RUB, FAMILY CALLED AND INQUIRED WHAT WAS GOING ON, WAS INFORMED THAT PT WAS GETTING CLEANED UP. CONTINUE TO OBSERVE AND MONITOR.
[2020-03-29 15:33] VITALS: BP 113/74
--- NOTE | 2020-03-29 16:15 | NUR ---
PT CONTINUES TO RELAX IN BED WITH NO DISTRESS NOTED. IV SITE IS FREE FROM REDNESS OR EDEMA.
[2020-03-29 19:11] VITALS: BP 112/62
--- NOTE | 2020-03-29 21:15 | NUR ---
PHYSICAL ASSESMENT COMPLETE. VS TAKEN BY REFRIGERATION BRAZER/SOLDERER @ 1911 ASSESSED, TELEMETRY READING FOR 1999 FROM ED TRANSITIONAL CARE LIAISON ASSESSED. PT HEMODYNAMICALLY STABLE. PLAN OF CARE REVIEWED W/ PT. PT VERBALIZES UNDERSTANDING AND DENIES QUESTIONS @ THIS TIME. PT ASSISTED TO REPOSITION FOR COMFORT AND ASSISTED TO CALL HER ON PHONE. PT DENIES FURTHER NEEDS @ THIS TIME. CALL QUISPE WITHIN REACH, AGREES TO CALL PRN. ITEMS WITHIN REACH. BED LOCKED IN LOW POSITION W/ BEDRAILS UP X2. WILL CON'T TO MONITOR.
[2020-03-29 23:49] VITALS: BP 114/53
--- NOTE | 2020-03-30 00:58 | NUR ---
PT APPEARS TO BE SLEEPING COMFORTABLY, NO APPARENT DISTRESS, RESPIRATIONS REGULAR AND UNLABORED. VS TAKEN BY TOWER ERECTOR HELPER @ 5649 ASSESSED. 0000 TELEMETRY READING RECEIVED FROM Pa ROJO LPN/BOTTLE HOUSE PUMPER IN ED ASSESSED. CALL QUISPE REMAINS WITHIN REACH. BED REMAINS LOCKED IN LOW POSITION W/ BEDRAILS UP X2. ITEMS WITHIN REACH. WILL CONT' TO MONITOR.
[2020-03-30 04:01] VITALS: BP 94/57
--- NOTE | 2020-03-30 05:28 | NUR ---
PHYSICAL ASSESMENT REMAINS UNCHANGED FROM START OF SHIFT. VS TAKEN BY INFECTION PREVENTION COORDINATOR @ 0401 ASSESSED. TELEMETRY READING REPORTED ED PATCH SANDER ASSESSED. PT REMAINS HEMODYNAMICALLY STABLE. RESTING IN BED COMFORTABLY @ THIS TIME. DENIES NEEDS @ THIS TIME. ITEMS WITHIN REACH. BED REMAINS LOCKED IN LOW POSITION W/ BED RAILS UPX2. CALL QUISPE REMAINS WITHIN REACH. PT AGREES TO CALL PRN.
[2020-03-30 08:00] VITALS: BP 97/65
[2020-03-30 08:41] LABS: HEMATOCRIT 42.7 % (37.0-47.0); MEAN CELL VOLUME 92.4 fL CALC (80.0-100.0); MEAN CORPUSCULAR HGB 28.1 pG CALC (26.0-32.0); MEAN CORPUSCULAR HGB CONC 30.4 g/dL CAL (32.0-36.0); RED BLOOD COUNT 4.62 mill/uL (4.20-5.60); RED CELL DISTRI WIDTH 14.8 % (11.5-15.5)
[2020-03-30 08:58] LABS: ALBUMIN 3.4 g/dL (3.2-5.0); ALKALINE PHOSPHATASE 98 u/l (38-126); ANION GAP 12 (6-22 (CALC)); BILIRUBIN, TOTAL 1.5 mg/dL (0.0-1.4); BUN 62 mg/dL (8-23); BUN/CREATININE RATIO 66 (12-20 (CALC)); CARBON DIOXIDE 34 mmol/l (22-30); CHLORIDE 87 mmol/l (95-108); CREATININE 0.9 mg/dL (0.5-1.0); GFR > 60 ML/MIN (>=60 (CALC)); GFR FOR AFR.AMER. > 60 ML/MIN (>=60 (CALC)); SGOT/AST 25 u/l (9-36); SODIUM 127 mmol/l (137-146); TOTAL PROTEIN 6.6 g/dL (6.3-8.2)
--- NOTE | 2020-03-30 09:00 | NUR ---
PT SEEN AWAKE, ALERT, ORIENTED X 3. PT APPEARS WEAK, UNMOTIVATED. LUNGS CLEAR BUT DIMINISHED IN BASES, 2 LPM. NO SHORTNESS OF BREATH , NO CHEST PAIN.
[2020-03-30 10:42] VITALS: BP 147/92
--- NOTE | 2020-03-30 13:00 | NUR ---
PT REMAINS AT REST IN THE BED, NO DISTRESS, NO COMPLAINTS. PT SEEN BY DR NOGUERA, NO NEW ORDERS RECEIVED.
[2020-03-30 15:25] VITALS: BP 146/85
--- NOTE | 2020-03-30 16:43 | NUR ---
PT OOB IN CHAIR AT BEDSIDE, REMAINS FREE OF DISTRESS, NO COMPLAINTS HEARD.
[2020-03-30 19:00] VITALS: BP 104/72
[2020-03-30 23:50] VITALS: BP 131/86
[2020-03-31 04:20] VITALS: BP 115/79
[2020-03-31 08:00] VITALS: BP 110/68
--- NOTE | 2020-03-31 08:31 | NUR ---
PT AT REST IN THE BED, WAS REPOSITIONED IN BED FOR BREAKFAST. PT RETURNS TO SLEEP SOON STIMULUS STOPS. PUREWICK IN PLACE. LUNGS CLEAR WITH DIMINISHED BASES, 4 LPM.
--- NOTE | 2020-03-31 10:14 | NUR ---
PT note Patient very lethargic today . She is seen for bed mobility and extremity strengthening. Her Am Pac is unchanged and she would benefit from [facility] for aggressive rehab to reach her previous baseline. She did complain of left hip pain with ROM but was able to perfrom some resisted knee - hip extension x 20 reps each She neds increased moblization
[2020-03-31 10:35] VITALS: BP 119/73
--- NOTE | 2020-03-31 12:29 | NUR ---
PT REMAINS BEFORE, SLEEPING IN THE BED, WAKING WITH AUDIBLE STIMULUS. NO CHEST PAIN, NO SHORTNESS OF BREATH.
[2020-03-31 14:40] VITALS: BP 123/78
[2020-03-31 15:50] VITALS: BP 120/74
--- NOTE | 2020-03-31 16:20 | NUR ---
PT SEEN AWAKE ON OCCASION IN PASSING ROOM, DID NOT EAT MUCH OF HER BREAKFAST OR LUNCH PER FALLING ASLEEP. NO DISTRESS, NO COMPLAINTS.
[2020-03-31 19:00] VITALS: BP 122/71
--- NOTE | 2020-03-31 19:55 | NUR ---
ASSESSMENT COMPLETED. NO DISTRESS NOTED; PT. IS DROWSY. RESTING IN BED ON RIGHT SIDE. REDNESS NOTED TO GROIN AND ABDOMINAL FOLDS AND ALOE CREAM APPLIED. TRIPLE RIJ INTACT WITH IVF INFUSING @[facility]. O2 INFUSING PER NC PER ORDER. ENCOURAGED TO CALL FOR ANY NEEDS. CALL LIGHT IS IN REACH. WILL CONTINUE TO MONITOR.
[2020-04-01 00:30] VITALS: BP 126/70
--- NOTE | 2020-04-01 01:30 | NUR ---
PT. RECEIVED A CBB AND LINENS CHANGED WELL PUREWIC. REPOSITIONED AT THIS TIME. ORAL CARE PROVIDED AND PLACED DENTURES TO SOAK. CALL LIGHT IS IN REACH. WILL CONTINUE TO MONITOR.
[2020-04-01 03:37] VITALS: BP 111/76
[2020-04-01 05:28] LABS: HEMATOCRIT 42.8 % (37.0-47.0); HEMOGLOBIN 13.1 g/dl (12.0-16.0); IMMATURE GRANULOCYTES 0.9 % (0.0-5.0); MEAN CELL VOLUME 92.6 fL CALC (80.0-100.0); MEAN CORPUSCULAR HGB 28.4 pG CALC (26.0-32.0); MEAN CORPUSCULAR HGB CONC 30.6 g/dL CAL (32.0-36.0); NEUT# 6.5 thou/uL (2.00-7.15); RED BLOOD COUNT 4.62 mill/uL (4.20-5.60)
--- NOTE | 2020-04-01 05:40 | NUR ---
SCHED SYNTHROID GIVEN . DENIES NEEDS. CALL LIGHT IS IN REACH.
[2020-04-01 06:05] LABS: ANION GAP 9 (6-22 (CALC)); BUN 55 mg/dL (8-23); BUN/CREATININE RATIO 56 (12-20 (CALC)); CARBON DIOXIDE 37 mmol/l (22-30); CHLORIDE 90 mmol/l (95-108); GFR 55 ML/MIN (>=60 (CALC)); GFR FOR AFR.AMER. > 60 ML/MIN (>=60 (CALC)); POTASSIUM 4.8 mmol/l (3.5-5.1); SODIUM 131 mmol/l (137-146)
[2020-04-01 08:00] VITALS: BP 98/68
--- NOTE | 2020-04-01 09:00 | NUR ---
PT SEEN AWAKE AND EATING BREAKFAST THIS MORNING. NO REPORT OF SHORTNESS OF BREATH, NO CHEST PAIN. CRACKLES TO BILATERAL BASES, 4 LPM NC.
[2020-04-01] MEDS ORDERED: PREDNISONE10 MG PO (10:11)
[2020-04-01 10:55] VITALS: BP 126/75
[2020-04-01 15:13] VITALS: BP 119/80
--- NOTE | 2020-04-01 16:35 | NUR ---
PT note Patient is more responsive today. She is able to mobilize herself and this included pushing herself back and up in the bed. She has less pain in the LLE and is improving with sitting and standing balance as well. She worked on repeated sit to stand and was even able to take 2-3 steps with PUMP SERVICER of 1. Her Am pac score is 9 indicating the need for aggressive short term rehab
--- NOTE | 2020-04-01 18:11 | NUR ---
PT CONTINUES BEFORE, RESTS IN THE BED IN NO DISTRESS.
[2020-04-01 19:04] VITALS: BP 99/61
--- NOTE | 2020-04-01 19:35 | NUR ---
ASSESSMENT COMPLETED. TRIPLE RIJ INTACT AND INFUSING ORDERD IVF @[facility]. UPDATED ON POC. PT. REMAINS ON O2 @4LITERS/MIN PER NC PER ORDER. ENCOURAGED PT. TO MOVE WHILE IN THE BED TO BUILD STRENGTH IN PT. AND VERBALIZES UNDERSTANDING. CALL LIGHT IS IN REACH. WILL CONTINUE TO MONITOR.
--- NOTE | 2020-04-01 23:10 | NUR ---
SPOKE WITH SUPERVISOR HOT DIP TINNING AND PER LAB COVID SWAB HAS NOT CAME BACK YET.
--- NOTE | 2020-04-01 23:33 | NUR ---
RESTING IN BED ON LEFT SIDE WITH EYES CLOSED; RESP. EVEN AND UNLABORED. CALL LIGHT IS IN REACH.
[2020-04-02] VITALS (7 sets, daily range): BP systolic 95–140; BP diastolic 52–90
--- NOTE | 2020-04-02 02:05 | NUR ---
RIJ TRIPLE LUMEN INTACT; DRESSING CHANGED PER PROTOCOL; PT. TOLERATED WELL. DENIES NEEDS. PT. ENCOURAGED TO REPOSITION SELF SHE IS ABLE TO TURN SELF WHILE IN BED. CALL LIGHT IS IN REACH.
--- NOTE | 2020-04-02 04:10 | NUR ---
PT. ASSISTED TO REPOSITION ONTO RIGHT SIDE WITH ASST. FRESH WATER PROVIDED. CALL LIGHT IS IN REACH. WILL CONTINUE TO MONITOR.
--- NOTE | 2020-04-02 08:07 | NUR ---
ASSESSMENT IS COMPLETED: IV SITE IS FREE FROM REDNESS OR EDEMA. HR IS RE,GPULSE ARE STRONG X4, ABD IS SOFT WITH ACTIVE BS. BREATH SOUNDS ARE CLEAR AND DIMINISHED. O2 @ 4LITERS WITH NC. TELE MONITOR IN PLACE. CONTINUE TO OBSERVE AND MONITOR.
--- NOTE | 2020-04-02 12:30 | NUR ---
PT HAS BEEN IN THE CHAIR FOR LUNCH. WANTED TO GO BACK TO BED, ENCOURAGED PT TO STAY UP FOR A WHILE. IV SITE IS FREE FROM REDNESS OR EDEMA.
--- NOTE | 2020-04-02 16:00 | NUR ---
PT note The patient is already OOB with nursing. She is much more alert today and is was noted to be feeding herself. She performed therapeutic activity of repeated sit to stand. She did this x 5 before exhaustion. She them stood and was breana to take 2 steps BTB with mod max assist of 1. Her Am Pac is 9 and she would do well to go to aggressive short term rehab to work on her independence and strength
--- NOTE | 2020-04-02 16:30 | NUR ---
PT WANTED TO BE TURNED ON HER SIDE. WITH SOME ASSISTANCE FROM PT ABLE TO TURN ON HER LEFT SIDE. IV SITE REMAINS FREE FROM REDNESS OR EDEAM.
--- NOTE | 2020-04-02 19:15 | NUR ---
REPORT FROM EMIL ARRIAGA. PT RESTING ON RIGHT SIDE. NO APPARENT DISTRESS NOTED. PT DENIES ANY PAIN OR DISCOMFORT. ASSISTED PT WITH REPOSITIONING TO LEFT SIDE UPON REQUEST. TRIPLE LUMEM TO RIGHT IJ, CDI. CABLE TESTERS HELPER IN PLACE. DISCUSSED POC. PT VERBALIZED UNDERSTANDING. CALL LIGHT WITHIN REACH. WILL CONTINUE TO MONITOR.
--- NOTE | 2020-04-02 23:16 | NUR ---
PT RESTING IN BED WITH EYES CLOSED. NO APPARENT DISTRESS NOTED. RESPIRATIONS EVEN AND UNLABORED. 02 @ 4L/M VIA NC. CALL LIGHT WITHIN REACH. WILL CONTINUE TO MONITOR.
[2020-04-03 03:25] VITALS: BP 94/60
--- NOTE | 2020-04-03 03:39 | NUR ---
PT RESTING IN BED WITH EYES CLOSED. NO APPARENT DISTRESS NOTED. CALL LIGHT WITHIN REACH. WILL CONTINUE TO MONITOR.
[2020-04-03 06:02] LABS: ANION GAP 9 (6-22 (CALC)); BUN 36 mg/dL (8-23); BUN/CREATININE RATIO 53 (12-20 (CALC)); CARBON DIOXIDE 35 mmol/l (22-30); CHLORIDE 89 mmol/l (95-108); CREATININE 0.7 mg/dL (0.5-1.0); GFR > 60 ML/MIN (>=60 (CALC)); GFR FOR AFR.AMER. > 60 ML/MIN (>=60 (CALC)); POTASSIUM 4.2 mmol/l (3.5-5.1); SODIUM 128 mmol/l (137-146)
[2020-04-03 08:30] VITALS: BP 109/65
--- NOTE | 2020-04-03 08:30 | NUR ---
ASSESSMENT IS COMPLTED: IV SITE IS FREE FROM REDNESS OR EDEMA. HR IS REG,PULSES ARE STRONG X4, ABD IS SOFT WITH ACTIVE BS. BREATH SOUNDS ARE CLEAR,BILATERALLY. TELE MONITOR IN PLACE. CONITNUE TO OSBERVE AND MONITOR
[2020-04-03 11:20] VITALS: BP 126/85
--- NOTE | 2020-04-03 12:02 | NUR ---
PT IS INSISTING ON GOING BACK TO BED,
--- NOTE | 2020-04-03 12:30 | NUR ---
PT IS RELAXING IN BED WITH NO DISTRESS NOTED. IV SITE IS FREE FROM REDNESS OR EDEMA.
--- NOTE | 2020-04-03 12:33 | NUR ---
PER LAURA CORRECTIONAL TREATMENT SPECIALIST PT WILL BE PICKED UP AROUND 3PM
--- NOTE | 2020-04-03 12:38 | NUR ---
ATTEMPTED TO CALL TO INFORM OF BEING SENT TO REHAB AROUND 3PM. NO ANSWER
--- NOTE | 2020-04-03 14:07 | NUR ---
TRIPLE LUMEN RIGHT IJ REMOVED; PT TOLERATED WELL. GAUZE AND TEGADERM DRESSING APPLIED.
[2020-04-03 14:45] VITALS: BP 148/95
--- NOTE | 2020-04-03 16:00 | NUR ---
PT IS RELAXING IN BED WITH NO DISTRESS NTOED. IV SITE WAS ALREADY DISCONTINUED. BY KERRI BEAUCHAMP.
--- NOTE | 2020-04-03 16:47 | NUR ---
SPOKE WITH RONDA BEAUCHAMP AT [facility]. PT IS ON HER WAY WITH TRANSPORT. NO DISTRESS NOTED. CONITNUE TO OBSERVE AND MONITOR.
== END 2020-04-03 16:38 | DRG 871 ==
LOC: ED 10:13 → ED-I 13:13 → ED 13:32 → ICU 13:33 → ED-I 13:33 → MS2 13:51 → ICU 03-23 18:35 → MS2 03-27 11:01
PROVIDERS: Internal Medicine; Internal Medicine Nephrology; Nurse Practitioner Family; ADMIT Internal Medicine; ATTEND Internal Medicine
PROC: 05HM33Z Insertion of Infusion Device into Right Internal Jugular Vein, Percutaneous Approach (ICD-10-PCS; principal; 2020-03-24)
PROC: B543ZZA Ultrasonography of Right Jugular Veins, Guidance (ICD-10-PCS; 2020-03-24)
DX: A41.9 Sepsis, unspecified organism (principal); J18.9 Pneumonia, unspecified organism; N17.0 Acute kidney failure with tubular necrosis; J96.21 Acute and chronic respiratory failure with hypoxia; J44.0 Chronic obstructive pulmonary disease with (acute) lower respiratory infection; E87.1 Hypo-osmolality and hyponatremia; R65.20 Severe sepsis without septic shock; I11.0 Hypertensive heart disease with heart failure; I50.9 Heart failure, unspecified; I95.89 Other hypotension; E11.51 Type 2 diabetes mellitus with diabetic peripheral angiopathy without gangrene; E87.5 Hyperkalemia; I25.10 Atherosclerotic heart disease of native coronary artery without angina pectoris; E86.9 Volume depletion, unspecified; E03.9 Hypothyroidism, unspecified; E78.5 Hyperlipidemia, unspecified; I48.91 Unspecified atrial fibrillation; M25.552 Pain in left hip; T38.0X5A Adverse effect of glucocorticoids and synthetic analogues, initial encounter; F17.200 Nicotine dependence, unspecified, uncomplicated; W06.XXXA Fall from bed, initial encounter; Y92.003 Bedroom of unspecified non-institutional (private) residence as the place of occurrence of the external cause; Z79.4 Long term (current) use of insulin; Z88.0 Allergy status to penicillin; Z79.82 Long term (current) use of aspirin; Z79.02 Long term (current) use of antithrombotics/antiplatelets; Z99.81 Dependence on supplemental oxygen; Z20.828 Contact with and (suspected) exposure to other viral communicable diseases
CPT/HCPCS: G0378; J1650; J1956; P9047; Q9967